=== PATIENT | male | born 2000 | race Caucasian/White ===

== ENCOUNTER 2024-10-24 23:59 | Emergency (ER) | payer SELFPAY ==
[2024-10-25] VITALS (9 sets, daily range): BP systolic 106–137; BP diastolic 61–87
[2024-10-25 00:16] LABS: % Basophils 0.3 % (0-2); % Immature Granulocytes 0.2 % (0-0.5); % Lymphocytes 17.9 % (20.5-51.1); % Monocytes 7.4 % (1.7-9.3); % Neutrophils 74.2 % (42.2-75.2); Absolute Lymphocytes 1.1 10^3/uL (1.2-3.4); Absolute Monocytes 0.4 10^3/uL (0.1-0.6); Absolute Neutrophils 4.4 10^3/uL (1.4-6.5); Hematocrit 44.1 % (39.0-52.0); Hemoglobin 14.7 g/dL (13.0-18.0); Mean Corp Hgb Conc. 33.3 g/dL (33.0-37.0); Mean Corpuscular Hgb 31.5 pg (27.0-31.0); Mean Corpuscular Volume 94.6 fL (80.0-94.0); Nucleated Red Blood Cells % 0 % (-); Platelet Count 188 10^3/uL (130-400); Red Blood Cell Count 4.66 10^6/uL (4.70-6.10); Red Cell Dist. Width 11.3 % (11.5-14.5)
[2024-10-25 00:33] LABS: ALT (SGPT) 21 U/L (0-50); AST (SGOT) 34 U/L (17-59); Acetaminophen < 10 ug/ml (10-30); Albumin 5.1 g/dl (3.5-5.0); Alcohol 184 mg/dl; Alkaline Phosphatase 66 U/L (38-126); Blood Urea Nitrogen 10 mg/dl (9-20); Calcium 8.9 mg/dl (8.4-10.2); Carbon Dioxide 17 mmol/L (22-30); Chloride 108 mmol/L (98-107); Glucose 83 mg/dl (70-99); Potassium 4.6 mmol/L (3.5-5.1); Salicylate < 1.0 mg/dl (2.0-20.0); Sodium 144 mmol/L (135-145); Total Bilirubin 1.3 mg/dl (0.2-1.3); Total Protein 7.5 g/dl (6.3-8.2); eGFR > 60.00
--- NOTE | 2024-10-25 00:41 | ED.GENMED ---
History of Present Illness
<Benson Ponce MD - Last Filed: 10/25/24 15:22>
General
Chief Complaint: Alcohol Problem
Source: patient
Exam Limitations: none
Time Seen by Provider: 10/25/24 00:01
Nursing documentation reviewed up to this point in time: agreed with
History of Present Illness
History of Present Illness:
Patient with history of alcoholism and violent behavior, treated at [facility] emergency department earlier today secondary to behavioral disturbance along with alcohol intoxication, presents to ED accompanied by police officers and paramedics,
after he became less responsive and difficult to arouse, during transport to present. Patient was medically cleared at [facility]. Upon arrival, patient is somnolent, but moving extremities spontaneously, but does not offer any
additional information.
Review of Systems
<Benson Ponce MD - Last Filed: 10/25/24 15:22>
Review of Systems
Allergies reviewed?: Yes
Unable to obtain full review of systems at this time due to: due to acuity
All Other Systems: Not applicable
Phy Exam
<Benson Ponce MD - Last Filed: 10/25/24 15:22>
Physical Exam
Physical Exam:
Physical Exam
General: no apparent distress, not acutely ill. afebrile
Head: nc/at. eomi
Neck: supple. no meningeal signs.
Heart: s1/s2 regular rate and rhythm, no murmur. equal radial pulses.
Lungs: no acute respiratory distress. clear bilaterally
Abdomen: normal bowel sounds. not tender.
Neuro: somnolent but moving spontaneously.
Skin: no rash.
Extremities: no edema. no calf tenderness.
Scores
<Benson Ponce MD - Last Filed: 10/25/24 15:22>
Withdrawal Assessment of Alcohol
Withdrawal Assessment Completed?: Not applicable
Course
<Benson Ponce MD - Last Filed: 10/25/24 15:22>
Orders/Labs/Results
Orders:
Orders
10/25/24 00:01
1:1 Observation - Suicide/ Violent Behavior As Directed
1:1 Observation - Suicide/ Violent Behavior As Directed
Restraints - Violent As Directed
Restraint Type-: Soft Limb-4 point/4 rails
Apply From (date): 10/25/24
Apply from (time): 00:01
Remove (date): 10/25/24
Remove (time): 04:01
10/25/24 00:02
CT Head W/o Iv Contrast Urgent
Comment:
Reason For Exam: mental status change
10/25/24 00:08
Acetaminophen Urgent
Alcohol Urgent
Complete Blood Count/With Diff Urgent
Comprehensive Metabolic Panel Urgent
Salicylate Urgent
10/25/24 12:18
Ondansetron Orally Disint [Zofran Odt (Orally Disintegrating)] 4 mg .ROUTE .STK-MED ONE
10/25/24 12:20
Ondansetron Orally Disint [Zofran Odt (Orally Disintegrating)] 4 mg PO NOW STA
Abnormal Lab Results
10/25/24
00:08
RBC 4.66 L 10^6/uL
(4.70-6.10)
MCV 94.6 H fL
(80.0-94.0)
MCH 31.5 H pg
(27.0-31.0)
RDW 11.3 L %
(11.5-14.5)
Absolute Lymphs (auto) 1.1 L 10^3/uL
(1.2-3.4)
Lymphocytes % 17.9 L %
(20.5-51.1)
Chloride 108 H mmol/L
(98-107)
Carbon Dioxide 17 L mmol/L
(22-30)
Albumin 5.1 H g/dl
(3.5-5.0)
Salicylates < 1.0 L mg/dl
(2.0-20.0)
Acetaminophen < 10 L ug/ml
(10-30)
10/25/24 00:08
10/25/24 00:08
Vital Signs
Initial and Last Documented VS:
Initial Vital Signs
Pulse Resp Pulse Ox
86 17 98
10/25/24 00:37 10/25/24 00:37 10/25/24 00:37
Last Documented Vital Signs
Temp Pulse Resp BP Pulse Ox
98.6 F 110 22 112/62 98
10/25/24 00:55 10/25/24 11:00 10/25/24 11:00 10/25/24 11:00 10/25/24 11:00
Quintinlt;Sukhjinder Man, - Last Filed: 10/27/24 17:26>
Orders/Labs/Results
Orders:
Orders
10/25/24 00:01
1:1 Observation - Suicide/ Violent Behavior As Directed
1:1 Observation - Suicide/ Violent Behavior As Directed
Restraints - Violent As Directed
Restraint Type-: Soft Limb-4 point/4 rails
Apply From (date): 10/25/24
Apply from (time): 00:01
Remove (date): 10/25/24
Remove (time): 04:01
10/25/24 00:02
CT Head W/o Iv Contrast Urgent
Comment:
Reason For Exam: mental status change
10/25/24 00:08
Acetaminophen Urgent
Alcohol Urgent
Complete Blood Count/With Diff Urgent
Comprehensive Metabolic Panel Urgent
Salicylate Urgent
10/25/24 12:18
Ondansetron Orally Disint [Zofran Odt (Orally Disintegrating)] 4 mg .ROUTE .STK-MED ONE
10/25/24 12:20
Ondansetron Orally Disint [Zofran Odt (Orally Disintegrating)] 4 mg PO NOW STA
Abnormal Lab Results
10/25/24
00:08
RBC 4.66 L 10^6/uL
(4.70-6.10)
MCV 94.6 H fL
(80.0-94.0)
MCH 31.5 H pg
(27.0-31.0)
RDW 11.3 L %
(11.5-14.5)
Absolute Lymphs (auto) 1.1 L 10^3/uL
(1.2-3.4)
Lymphocytes % 17.9 L %
(20.5-51.1)
Chloride 108 H mmol/L
(98-107)
Carbon Dioxide 17 L mmol/L
(22-30)
Albumin 5.1 H g/dl
(3.5-5.0)
Salicylates < 1.0 L mg/dl
(2.0-20.0)
Acetaminophen < 10 L ug/ml
(10-30)
10/25/24 00:08
10/25/24 00:08
Vital Signs
Initial and Last Documented VS:
Initial Vital Signs
Pulse Resp Pulse Ox
86 17 98
10/25/24 00:37 10/25/24 00:37 10/25/24 00:37
Last Documented Vital Signs
Temp Pulse Resp BP Pulse Ox
98.6 F 110 22 112/62 98
10/25/24 00:55 10/25/24 11:00 10/25/24 11:00 10/25/24 11:00 10/25/24 11:00
Quintinlt;Benson Ponce MD - Last Filed: 10/25/24 15:22>
MDM/Problems Addressed
MDM/Problems Addressed:
Discussed with [facility] emergency department. Patient was given Benadryl, Ativan, and Zyprexa, on approximately 2 hours prior to arrival in our ED. It is quite possible that patient's current depressed mental status, may be secondary to
medications given. Patient will be observed further.
CT head: No acute findings.
Patient becoming more awake during observation. Patient otherwise is medically cleared. Patient will be discharged, to state police, when he is more awake.
<Benson Ponce MD - Last Filed: 10/25/24 15:22>
*Critical Care Note
Total Time (30-74mins, 75-104mins- exclusive of procedures): Not Applicable
<Sukhjinder Man DO - Last Filed: 10/27/24 17:26>
Update Note
Update Note:
1125am---pt awake, ambulating in ED. Nausea, likely from excessive alcohol intake last night. Pt can be discharged
ED Attending Note
<Benson Ponce MD - Last Filed: 10/25/24 15:22>
-
Portions of this chart may have been created with voice recognition software.� Occasional wrong word or��sound alike� substitutions may have occurred due to the inherent limitations of voice recognition software.
Discharge Plan
Departure
Patient Disposition: Home (Routine Discharge)
Date of Disposition: 10/25/24
Time of Disposition: 11:26
Patient with high blood pressure during this ER visit?: No
Condition: Good
Discharge Problem:
Alcohol intoxication, Sedated due to multiple medications
Instructions: Alcohol intoxication - ED discharge instructions
Referrals:
UNKNOWN - PT DOES,NOT KNOW [Family Provider] -
Activity Restrictions/Additional Instructions:
Pt medically cleared for incarceration
Interventions
Interventions:
*Risk Screen - Suicide Last Done: 10/25/24 00:04
*General Assessment Last Done: 10/25/24 00:04
*Neglect/Abuse Screening Last Done: 10/25/24 12:35
ED- Fall Risk Assessment Last Done: 10/25/24 12:35
*ED COVID-19 Vaccine History Last Done: 10/25/24 00:04
*Nursing Disposition Last Done: 10/25/24 12:35
ED- Neurological Assessment Last Done: 10/25/24 03:30
ED-Psychological Assessment Last Done: 10/25/24 00:35
Discharge Date and Time
Discharge Date/Time: 10/25/24 12:35
Print Language: KHMER
--- NOTE | 2024-10-25 11:25 | EDRN ---
This RN just checked pt and he is awake. Breakfast tray left at stretcher side and large cup of fresh water. [facility]. This RN informed Dr. Man who told compilation clerk to [facility] Police about pt.
Magda informed that as no 302 and no police presence we cannot keep pt here if he decides to leave per Enrique (hospital legal aid). [employer] Worker is getting number to call and notify them. No meds ordered for pt's nausea and vomiting at this time. Pt
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 Will discontinue IV access at this time.
--- NOTE | 2024-10-25 11:34 | EDRN ---
[employer] Worker did not call as Enrique Maravilla ([facility]) said pt is not 302, and no police presence w/ pt is free to go and we can notify them when pt is leaving. Pt is now discharged. Dr. Man was informed by [facility] ED PCT and This RN already
informed Dr. Man who was requesting police to be called.
--- NOTE | 2024-10-25 11:38 | EDRN ---
Addendum entered by Yarely Gómez RN 10/25/24 11:39:
This RN called Enrique Maravilla as per security.
Original Note:
Enrique Maravilla called and will call [place] [employer] as a courtesy call that pt is now discharged.
[2024-10-25] MEDS: ZOFRAN ODT (ORALLY DISINTEGRATING) 4 MG PO (12:23)
--- NOTE | 2024-10-25 12:33 | EDRN ---
State police came to take pt at this time. Discharge plan given to pt and to police w/ cleared for incarceration on sheet done by Dr. Man.
== END 2024-10-25 12:35 ==
LOC: EMR 23:59
PROVIDERS: EMERGENCY PHYSICIAN Emergency Medicine
DX: F10.129 Alcohol abuse with intoxication, unspecified (principal); Y90.6 Blood alcohol level of 120-199 mg/100 ml; F13.929 Sedative, hypnotic or anxiolytic use, unspecified with intoxication, unspecified
CPT/HCPCS: 99284; 70450; 80053; 80143; 80179; 82077; 85025